=== PATIENT | female | born 1985 | race Caucasian/White ===

== ENCOUNTER → 2017-11-03 | Outpatient (CLI) | payer OTHER | LOC: CAT 11:46 | DX: R10.31 Right lower quadrant pain (principal); R10.33 Periumbilical pain ==

== ENCOUNTER → 2019-02-21 | Outpatient (CLI) | payer BC, OTHER | LOC: RAD 12:22 | DX: M54.2 Cervicalgia (principal) ==

== ENCOUNTER → 2019-03-27 | Outpatient (CLI) | payer BC, OTHER | LOC: MRI 01-11 10:33 | DX: M50.122 Cervical disc disorder at C5-C6 level with radiculopathy (principal); M47.22 Other spondylosis with radiculopathy, cervical region; M48.02 Spinal stenosis, cervical region; M25.78 Osteophyte, vertebrae; Z88.8 Allergy status to other drugs, medicaments and biological substances; Z88.5 Allergy status to narcotic agent ==

== ENCOUNTER → 2019-07-10 | Outpatient (CLI) | payer BC, OTHER | LOC: MRI 07:02 | DX: S41.012A Laceration without foreign body of left shoulder, initial encounter (principal); M75.92 Shoulder lesion, unspecified, left shoulder; X58.XXXA Exposure to other specified factors, initial encounter; Y93.89 Activity, other specified; Y92.89 Other specified places as the place of occurrence of the external cause; Y99.8 Other external cause status ==

== ENCOUNTER → 2019-11-02 | Outpatient (CLI) | payer BC, OTHER ==
[~2019-11-02] VITALS: Ht 162.6 cm; Wt 59.0 kg
[~2019-11-02] MED LIST: ADVIL200 M1 PO; NORCO 5-325 TA1 EAC1 PO
[2019-11-02 14:07] VITALS: BP 114/78
--- NOTE | 2019-11-02 14:53 | NUR ---
Pain Clinic Assessment: 1. History of Osteoarthritis: Not Applicable History of Rheumatoid Arthritis: Not Applicable 2. Height: 5 ft. 4 in. 162.6 cm. Weight: 130.0 lb. oz. 58.968 kg. Patient's BMI: 22.3 3. Vital Signs: BP: 114/78 Pulse: 82 Resp: 14 Temp: 02 Sat: 100 ECG Mon: 4. Pain Intensity: 9 5. Fall Risk: Dizziness: N Needs help standing or walking: N Fallen in the last 3 months: N Fall risk comments: 6. Patient on Blood Thinner: None 7. History of Hypertension: N 8. Opioid Therapy greater than 6 weeks: Opiate Contract Signed: 9. Risk Assessment Tool Provided: 2-LOW RISK 10. Functional Assessment Tool: 11. Recreational Drug Use: Unknown Drug Type: Tobacco Use: Never Smoker Tobacco Type: Amount or Packs/day: How Many Years: Alcohol Use: Yes Frequency: Weekly Quant: 3/WEEK
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
== END ==
LOC: PAIN 09-18 06:44
DX: M54.12 Radiculopathy, cervical region (principal); Z79.899 Other long term (current) drug therapy

== ENCOUNTER → 2019-11-09 | Outpatient (CLI) | payer BC, OTHER ==
[~2019-11-09] VITALS: Ht 162.6 cm; Wt 59.5 kg
--- NOTE | ~2019-11-09 | HPC ---
[facility] [address] [facility] [place] [address] PAIN MANAGEMENT CONSULTATION Name: JACKI PAUL Room #: REG [facility] MBelinda.#: [id number] Admission: 11/09/19 Attend Phys: Keenan Longoria MD Discharge: Date of : 81 Report #: [id number] THIS REPORT FOR: //name// CC: Julius Longoria DATE OF SERVICE: 11/09/2019 Followup visit for cervical epidural injection. The patient was seen on 11/02/2019 for an extended consultation. She is here today for cervical epidural injection as discussed. There has been no significant change in her condition since I last saw her. I reviewed the procedure with her including risks and benefits and she is anxious to proceed with the injection. PROCEDURE: Cervical epidural injection under fluoroscopic guidance. She was taken to fluoroscopic suite where she was placed prone, skin prepped with ChloraPrep. Skin anesthetized over the C6-C7 interspace. A 20-gauge Tuohy epidural needle was advanced in the epidural space using loss of resistance technique. There was no blood nor CSF aspirated. A 1 mL of Omnipaque was injected to demonstrate an excellent epidurogram, was then followed by a total of 3 mL of 0.5% lidocaine mixed with 80 mg of triamcinolone. She tolerated the procedure well. There were no complications. Pain diminished in the recovery room by about 40%. Followup visit planned as needed. By: [id number] MD rehana Jain
[2019-11-09 15:23] VITALS: BP 124/89
--- NOTE | 2019-11-09 15:38 | NUR ---
Pain Clinic Assessment: 1. History of Osteoarthritis: Not Applicable History of Rheumatoid Arthritis: Not Applicable 2. Height: 5 ft. 4 in. 162.6 cm. Weight: 131.2 lb. oz. 59.512 kg. Patient's BMI: 22.5 3. Vital Signs: BP: 124/89 Pulse: 74 Resp: 14 Temp: 02 Sat: 100 ECG Mon: 4. Pain Intensity: 8 5. Fall Risk: Dizziness: N Needs help standing or walking: N Fallen in the last 3 months: N Fall risk comments: 6. Patient on Blood Thinner: None 7. History of Hypertension: N 8. Opioid Therapy greater than 6 weeks: Y Opiate Contract Signed: 9. Risk Assessment Tool Provided: 2-LOW RISK 10. Functional Assessment Tool: 11. Recreational Drug Use: Never Drug Type: Tobacco Use: Never Smoker Tobacco Type: Amount or Packs/day: How Many Years: Alcohol Use: Yes Frequency: Weekly Quant: 3 GLASSES WINE PER WEEK.
== END | disposition home or self-care (01) ==
LOC: PAIN 06:54
DX: M54.12 Radiculopathy, cervical region (principal); Z88.8 Allergy status to other drugs, medicaments and biological substances; Z79.899 Other long term (current) drug therapy

== ENCOUNTER → 2020-01-01 | Outpatient (CLI) | payer BC, OTHER ==
[~2020-01-01] VITALS: Ht 162.6 cm; Wt 59.9 kg
--- NOTE | ~2020-01-01 | HPC ---
[facility] [address] [place] [address] PAIN MANAGEMENT CONSULTATION Name: JACKI PAUL Room #: REG [facility] Lillian.#: [id number] Admission: 01/01/20 Attend Phys: Keenan Longoria MD Discharge: Date of : 81 Report #: [id number] THIS REPORT FOR: cc: Julius Stapleton MD, Neal A. MD Morgan,Keenan Dior MD ~ THIS REPORT FOR: //name// CC: Julius Longoria DATE OF SERVICE: 01/01/2020 REASON FOR VISIT: Followup visit for cervical radiculopathy. SUBJECTIVE: The patient returns to pain clinic today with cervicalgia radiating into both arms. Pain is worse on the left where she also has numbness. She received a cervical epidural injection with improvement in numbness and other symptoms in October. Overall, she is better than she was when I first saw her and she is here today for a second injection. Cervical spine x-rays are positive for annular tear at C5-C6 and posterior protrusion at that level. She also has narrowing of the canal 7-8 mm consistent with moderate spinal stenosis at that level. PHYSICAL EXAMINATION: GENERAL: She is a pleasant young female, appears fit. VITAL SIGNS: Blood pressure is 133/74, heart rate 79, respirations 16. HEENT: Normal. NECK: Reveals good range of motion with some tenderness with lateral tilt and rotation on the left side. Pain radiates into her left arm and follows a C6 distribution. CHEST: Clear. CARDIAC: Rhythm is regular. IMPRESSION: Cervicalgia with radiculopathy related to C5-C6 disk protrusion and annular tear. RECOMMENDATIONS: Repeat epidural injection under fluoroscopic guidance. PROCEDURE: She was taken to fluoroscopic suite for treatment, placed prone, skin prepped with ChloraPrep. Skin anesthetized over C6-C7 interspace. A 20-gauge Tuohy epidural needle was advanced on the first attempt in the epidural space with loss of resistance. There was no blood or CSF aspirated. A 1 mL of Omnipaque was injected. Good spread of dye observed into the epidural space, followed by 3 mL of 0.5% lidocaine mixed with 80 mg triamcinolone. She [facility] [address] [place] [address] PAIN MANAGEMENT CONSULTATION Name: JACKI PAUL Room #: REG [facility].#: [id number] Admission: 01/01/20 Attend Phys: Keenan Longoria MD Discharge: Date of : 81 Report #: [id number] tolerated the procedure well and was observed for 30 minutes and discharged. Follow up as needed. A third injection may be performed sometime in the next several months if necessary. By: [id number] Keenan Longoria MD /nt
[2020-01-01 09:08] VITALS: BP 133/74
--- NOTE | 2020-01-01 09:09 | NUR ---
Pain Clinic Assessment: 1. History of Osteoarthritis: NONE History of Rheumatoid Arthritis: NONE 2. Height: 5 ft. 4 in. 162.6 cm. Weight: 132.0 lb. oz. 59.875 kg. Patient's BMI: 22.6 3. Vital Signs: BP: 133/74 Pulse: 79 Resp: 14 Temp: 02 Sat: 97 ECG Mon: 4. Pain Intensity: 6 5. Fall Risk: Dizziness: N Needs help standing or walking: N Fallen in the last 3 months: N Fall risk comments: 6. Patient on Blood Thinner: None 7. History of Hypertension: N 8. Opioid Therapy greater than 6 weeks: Y Opiate Contract Signed: 9. Risk Assessment Tool Provided: 2-LOW RISK 10. Functional Assessment Tool: 11. Recreational Drug Use: Never Drug Type: Tobacco Use: Never Smoker Tobacco Type: Amount or Packs/day: How Many Years: Alcohol Use: Yes Frequency: Quant:
== END | disposition home or self-care (01) ==
LOC: PAIN 12-07 06:41
DX: M50.121 Cervical disc disorder at C4-C5 level with radiculopathy (principal); G89.29 Other chronic pain; Z98.890 Other specified postprocedural states; Z79.891 Long term (current) use of opiate analgesic; Z88.8 Allergy status to other drugs, medicaments and biological substances

== ENCOUNTER → 2022-01-16 | Outpatient (CLI) | payer OTHER | LOC: MRI 10:32 | PROVIDERS: ATTEND Nurse Practitioner | DX: M51.37 Other intervertebral disc degeneration, lumbosacral region (principal); M48.061 Spinal stenosis, lumbar region without neurogenic claudication; M47.817 Spondylosis without myelopathy or radiculopathy, lumbosacral region ==